=== PATIENT | female | born 1970 | race Caucasian/White ===

== ENCOUNTER 2017-07-25 13:02 | Emergency (ER) | payer BC, OTHER ==
[~2017-07-25] VITALS: Ht 170.2 cm; Wt 88.9 kg
[~2017-07-25 13:02] MED LIST: HYDR12.53 PO; LEVO25TA4 PO
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
[2017-07-25] MEDS ORDERED: GELATIN SPONGE SIZE 12-7MM SPONGE. TP ONE (13:45)
[2017-07-25 14:31] VITALS: BP 117/67
== END 2017-07-25 14:39 | disposition home or self-care (01) ==
LOC: ER 13:02
DX: S06.0X0A Concussion without loss of consciousness, initial encounter (principal); W19.XXXA Unspecified fall, initial encounter; Y93.89 Activity, other specified; Y99.8 Other external cause status; Y92.89 Other specified places as the place of occurrence of the external cause
CPT/HCPCS: 99284